=== PATIENT | female | born 1990 | race Caucasian/White ===

== ENCOUNTER 2018-09-20 11:03 | Outpatient (CLI) | payer BC ==
--- NOTE | 2018-09-20 12:11 | RAD ---
LUMBAR SPINE 3 VIEWS: HISTORY: Back pain. FINDINGS: Lumbar vertebrae maintain normal height and alignment. Disk spaces are normally maintained. No evid ence of spondylolisthesis or spondylolysis. IMPRESSION: Unremarkable lumbar spine. POS: OFF
--- NOTE | 2018-09-20 17:51 | RAD ---
EXAM: XR Thoracic Spine 2 View PROVIDED CLINICAL HISTORY: Chronic upper and lower back pain after falling in bathtub 2 weeks ago. COMPARISON: None FINDINGS: The vertebral body heights and intervertebral disc spaces appear to be within normal limits. No obvio us fracture is seen, and there is no evidence of a subluxation. IMPRESSION: No obvious fracture seen involving the thoracic spine.
== END 2018-09-20 11:04 | disposition home or self-care (01) ==
LOC: SCSRAD 11:03
PROVIDERS: ATTEND Chiropractor
DX: S32.009A Unspecified fracture of unspecified lumbar vertebra, initial encounter for closed fracture (principal)
CPT/HCPCS: 72070; 72100